=== PATIENT | female | born 1935 | race Caucasian/White ===

== ENCOUNTER 2016-03-18 19:10 | Inpatient (IN) | payer OTHER ==
[2016-03-18] MEDS ORDERED: Sodium Chloride 0.9% 1,000 ML PRIMARY IV ONE (19:23)
[2016-03-18] MEDS ORDERED: NORMAL SALINE 10 ML SYRINGE FLUSH IVP PRN (19:23)
[2016-03-18] MEDS ORDERED: ALBUTEROL SULFATE 2.5 MG/3 ML NEB ONE (19:23)
[2016-03-18 19:44] LABS: BASOPHILS # (AUTO) 0.02 10*3/UL; BASOPHILS % (AUTO) 0.2 % (0-1); EOSINOPHILS % (AUTO) 1.2 % (0-8); HEMATOCRIT 40.8 % (37.0-47.0); IMM GRAN % (AUTO) 0.2 % (0-5); IMM GRAN# (AUTO) 0.02 10*3/UL; LYMPHOCYTES # (AUTO) 0.52 10*3/uL; LYMPHOCYTES % (AUTO) 4.4 % (10-50); MEAN CORPUSCULAR HEMOGLOBIN 29.1 PG (27-31); MEAN CORPUSCULAR HGB CONC 31.9 g/dL (33-37); MEAN PLATELET VOLUME 10.6 FL (7.4-12.2); MONOCYTES # (AUTO) 0.74 10*3/UL (0.3-0.8); MONOCYTES % (AUTO) 6.3 % (5-15); NEUTROPHILS # (AUTO) 10.37 10*3/UL; NEUTROPHILS % (AUTO) 87.7 % (50-80); RDW COEFFICIENT OF VARIATION 13.6 % (11.5-14.5); RED BLOOD COUNT 4.46 10^6/uL (4.20-5.40); WHITE BLOOD COUNT 11.81 10^3/uL (4.8-10.8)
[2016-03-18 19:47] LABS: PLATELET MORPHOLOGY COMMENT NORMAL MORPHOLOGY (NORM)
[2016-03-18 19:54] LABS: BILIRUBIN,TOTAL 0.6 mg/dL (0.3-1.2); BUN/CREATININE RATIO 21.42 (6-20); CALCIUM 8.9 mg/dL (8.7-10.7); CREATININE 0.7 mg/dL (0.50-1.20); POTASSIUM 4.1 meq/L (3.8-5.2); TOTAL PROTEIN 7.4 g/dL (6.1-8.0)
--- NOTE | 2016-03-18 22:00 | DI ---
HISTORY: Dyspnea with hypoxia. COMPARISON: None available. FINDINGS: The heart is in the upper limits of normal with atheromatous changes of the dorsal aorta. There is mild COPD with accentuation of the pulmonary vasculature in both lung bases. The lung fie lds are otherwise essentially clear. IMPRESSION: 1. The heart is in the upper limits of normal with atheromatous changes of the dorsal aorta. 2. There is mild COPD with accentuation of the pulmonary vasculature in both lung bases.
--- NOTE | 2016-03-18 22:08 | DI ---
HISTORY: Dyspnea and hypoxia. COMPARISON: None available. TECHNIQUE: Multiple helically acquired CT images were obtained through the chest following a CT kylee ogram protocol. FINDINGS: Examination demonstrates mild cardiomegaly. Peripheral vascular calcifications are seen. The pulmonary arteries are normal without filling defect or truncation. There is mild subsegmental a telectasis. Peripheral vascular disease is seen. There is mild osteopenia. Patient is status post vertebroplasty at multiple levels. IMPRESSION: 1. No evidence of pulmonary embolism. Christiano Martinez M.D. and True Nguyen M.D.
--- NOTE | 2016-03-18 22:48 | PDOC ---
Dyspnea HPI - General Chief Complaint: Dyspnea Stated Complaint: Dyspnea Date Seen by Provider: 03/18/16 Time Seen by Provider: 19:15 Source: POSITIVE: Patient, Other (daughter) Exam Limitations: POSITIVE: No limitations Treatment Prior to Arrival: REPORTS: Oxygen, Other (DuoNeb) Nurse's Notes Reviewed & Considered: Yes - History of Present Illness Initial Comments: The patient is an 80year-old female.. She is brought to the emergency room by her daughter. Patient states that for the last 12-24 hours she has been very short of breath. She's also had a mild cough. This evening she began to run a fever. She was seen by her primary care provider earlier today for these symptoms and she was noted to be hypoxic. Patient does take 2 L/m of supplemental oxygen at night, and she was advised to continue with this amount of supplemental oxygen during the day. Patient has a history of COPD; she smoked at least a pack of cigarettes per day up until 9 years ago, and has not smoked since. She's had a mild nonproductive cough. History of DVT to the right leg in the past. History of hypertension and she states she had a myocardial infarction approximately one year ago. Body Location Affected: REPORTS: Chest Timing: REPORTS: Gradual, Getting Worse Duration: <24 hours Severity: Moderate Quality: REPORTS: Other (Patient denies any chest pain or any other pain anywhere) Initiating Event: DENIES: Upper Respiratory Illness, Out of Medications, Sports , Exercise, Aspiration, Choking, Allergy, Exposure - Smoke, Exposure - Mold, Exposure - Other Allergen Context: DENIES: Sleep, Rest, Emotional Upset, Activity, Exertion, Other Exacerbated By: REPORTS: Exertion (Dyspnea worsened by exertion) Associated Symptoms: REPORTS: Fever Similar Symptoms Previously: Yes Recently seen/treated/hospitalized: Yes Any Prior Injuries Related to Current Complaint?: No - Patient Home Medications Home Medications: Home Medications Calc/D3/Mag/Zn/Wire Straightener/Clarence/Karthaus [Calcium 600 Mg + Vit D Tab] 2 each PO DAILY #180 tab 01/25/13 Oxygen (O2) 1 unit NASAL DAILY #1 unit 01/25/13 Denosumab [Prolia] 60 mg SUBCUT MONTHLY #1 ml 03/19/14 Albuterol/Ipratrop Neb Soln [Duoneb Neb Soln] 1 vial NEB Q4-6HRSPRN #1 box 02/28 Aspirin 1 tab PO QD #30 tab 09/30/15 Metoprolol Tartrate 1 tab ORAL BID #180 tab 09/30/15 Omeprazole 1 cap PO QD #30 cap 12/24/15 Tiotropium [place] [Spiriva] 18 mcg IH QD #30 capsule 12/24/15 Fluticasone/Salmeterol [Advair 250-50 Diskus] 1 puff INH BID #60 puff 01/05/16 - Patient Allergies Allergies/Adverse Reactions: Allergies Allergy/AdvReac Type Severity Reaction Status Date / Time No Known Drug Allergies Allergy NOT Verified 03/18/16 19:26 APPLICABLE Past Medical History - heen HEENT History: Cataracts Cardiovascular History: Hypertension, Previous [place], CAD, DVTs Additional Cardiovasular History: ATYPICAL CHEST PAIN, [place] 03/09/15. Endarterectomy Respiratory History: COPD, Home Oxygen Use Additional Respiratory History: 1-2 lpm n/c only at night Gastrointestinal History: GERD Additional Gastrointestinal History: COLONIC POLYPS Genitourinary History: Denies History Endocrine History: Denies History Musculoskeletal History: Osteoporosis Prosthesis or Implant: No Additional Neurological History: CEREBROVASCULAR DISEASE Blood Disorders: Other (please comment) Additional Blood Disorders History: Hx of DVT in right leg Psychiatric History: Anixety Disorders Additional Psychiatric History: Anxiety with dyspnea History of Sexually Transmitted Diseases: No Female Reproductive History: Denies History Obstetrical History: Denies History Cancer History: Denies History In Past Year Been Physically Harmed or Verbally Threatened: No History of MDRO: No History of Other Communicable Diseases: No Tobacco Use: Former Smoker Alcohol Use: None Substance Use Type: None Previous Surgical History: Yes Type / Date of Surgery: KYPHOPLASTY 01/17/13 & 04/22/07-CAROTID ENDARTERCTOMY -COLONOSCOPY 08/22/10. Cataracts Anesthesia Reactions: No Malignant Hyperthermia: No Significant Family History: Cancer Past Medical History Reviewed: Reviewed - No Changes ROS - Limitations ROS Limitations: No Limitations Constitution: REPORTS: Chills, Fever, Other (Dyspnea) Cardiovascular: REPORTS: Denies Cardiac Symptoms Respiratory: REPORTS: Cough Non Productive Neurological: REPORTS: Denies Neuro Symptoms Gastrointestinal: REPORTS: Denies GI Symptoms Endocrine: REPORTS: Denies Symptoms Musculoskeletal: REPORTS: Denies MS Symptoms Genitourinary: REPORTS: Denies Symptoms Eyes: REPORTS: Denies Symptoms ENT: REPORTS: Denies Symptoms Skin: REPORTS: Denies Skin Symptoms Lympathic: REPORTS: Denies Lympathic Symptoms Immunologic: POSITIVE: Denies Symptoms Psychiatric: POSITIVE: Denies Psych Symptoms Dyspnea Physical Exam - General Appearance General Appearance: REPORTS: Alert, Cooperative, No Acute Distress, No Evidence of Trauma - HEENT HEENT: POSITIVE: Head Inspection Nml, Eyes Inspection Nml, Ears Inspection Nml, Nose Inspection Nml, Oral/Dental Inspect. Nml, Pharynx Inspect. Nml, PERRL, EOMI - Neck Neck: REPORTS: Normal Inspection, No Carotid Bruit - Respiratory Respiratory: REPORTS: No Pleuritic Chest Pain, Speaks Full Sentences, No Pain on Inspiration, Respiratory Distress (Dyspnea, especially on exertion), Rhonchi , Decreased Air Movement. DENIES: Breath Sounds Normal (Scattered rhonchi), Fatigue, Wheezes, Rales, Prolonged Expirations, Accessory Muscle Use, Retractions, Splinting, Dull on Percussion, Chest Wall Tenderness, Speaks Broken Sentences, Stridor, Respiratory Failure - Cardiovascular Cardiovascular: REPORTS: Regular Rate and Rhythm, Heart Sounds Normal, Equal Pulses, Strong Pulses, No Murmur, No Gallop, No Friction Rub, No JVD Peripheral Pulses: Radial (R): 2+, Radial (L): 2+ - Abdomen Abdomen: Soft: (All Quadrants), Normal Bowel Sounds: (All Quadrants), Denies Tenderness: (All Quadrants), No Splenomegaly: (All Quadrants), No Hepatomegaly: (All Quadrants), No Guarding: (All Quadrants), No Rebound: (All Quadrants), No Palpable Pulse: (All Quadrants), No Palpabale Mass: (All Quadrants), No Distention: (All Quadrants), No Rigidity: (All Quadrants) - Skin Skin: REPORTS: Intact, Normal For Race, Warm, Dry, No Rash - Extremities Extremity: Non-Tender: (All Extremities), Normal ROM: (All Extremities), Normal Inspection: (All Extremities) - Neurological / Psychological Neurological: POSITIVE: Oriented X3, desk sergeant Normal As Tested, Motor Normal, Sensation Normal, 5, 6 Dyspnea Progress - Results Reviewed by me Xrays/CTs/US Reviewed by me: Yes Discussed with Radiologist: Yes Radiology Findings: Chest x-ray shows no definite infiltrates. CTA chest shows no pulmonary emboli or definite infiltrates. Lab Results Reviewed: Yes (d-dimer elevated.) Lab Results:: Laboratory Results 03/18/16 03/18/16 Range/Units 19:35 19:43 WBC 11.81 H (4.8-10.8) 10^3/uL RBC 4.46 (4.20-5.40) 10^6/uL Hgb 13.0 (12.0-16.0) g/dL Hct 40.8 (37.0-47.0) % MCV 91.5 (81-99) FL MCH 29.1 (27-31) PG MCHC 31.9 L (33-37) g/dL RDW Std Deviation 44.9 (39-50) fL RDW Coeff of Kimmy 13.6 (11.5-14.5) % Plt Count 261 (140-350) 10*3/uL MPV 10.6 (7.4-12.2) FL Immature Gran % (Auto) 0.2 (0-5) % Neut % (Auto) 87.7 H (50-80) % Lymph % (Auto) 4.4 L (10-50) % [place] % (Auto) 6.3 (5-15) % Eos % (Auto) 1.2 (0-8) % Baso % (Auto) 0.2 (0-1) % Immature Gran # (Auto) 0.02 10*3/UL Neut # (Auto) 10.37 10*3/UL Lymph # (Auto) 0.52 10*3/uL [place] # (Auto) 0.74 (0.3-0.8) 10*3/UL Eos # (Auto) 0.14 10*3/UL Baso # (Auto) 0.02 10*3/UL WBC Morphology Comment Normal morphology (NORM) Plt Morphology Comment Normal morphology (NORM) RBC Morph Comment Normal morphology (NORM) D-Dimer 12.01 H (0.00-0.59) mg/L VBG pH 7.39 (7.32-7.42) VBG pCO2 43 L (45-55) mmHg VBG HCO3 26 (22-26) mmol/L VBG Base Excess 1 (-2-2) MMOL/L Sodium 141 (135-145) meq/L Potassium 4.1 (3.8-5.2) meq/L Chloride 103 (98-112) meq/L Carbon Dioxide 27 (23-33) meq/L Anion Gap 11 (5-20) BUN 15 (7-22) mg/dL Creatinine 0.7 (0.50-1.20) mg/dL Estimated GFR (>60 ml/min/1.73m(2)) BUN/Creatinine Ratio 21.42 H (6-20) Glucose 134 H (78-110) mg/dL Calculated Osmolality 294.0 H (267-292) mOsm/kg Calcium 8.9 (8.7-10.7) mg/dL Total Bilirubin 0.6 (0.3-1.2) mg/dL AST 22 (8-39) IU/L ALT 24 (9-52) IU/L Alkaline Phosphatase 65 (38-126) IU/L Total Protein 7.4 (6.1-8.0) g/dL Albumin 4.2 (3.5-4.8) g/dL Globulin 3.2 (2.50-4.10) g/dL Albumin/Globulin Ratio 1.30 (1.3-2.0) mg/g - Patient's Progress Pain Medication Addressed: POSITIVE: Not Applicable School/Work Release Addressed: POSITIVE: Not Applicable Re-Examine Time: 22:35 Re-Examine Comment: Patient feels some better after DuoNeb treatment. Oxygen saturation is 80 off of oxygen, but come up to 92-94 on 4 L. Repeat temperature is 99, down from the 101 on arrival Status: POSITIVE: Improved, Re-Examined Air Movement: POSITIVE: Fair - Consult Consult (If Yes, Name of Consulting MD & Time Called): Yes (Dr. Dean, hospitalist, [id number]) Consulting MD will see pt:: POSITIVE: [facility] [place] Admit Counseled: POSITIVE: Patient, Family, RE: Lab Results, RE: Radiology Results, RE : DX, RE: Need for F/U Patient Care Time - Estimated PCT Patient Care Time (In Minutes): 40 Vital Signs - Recent Vital Signs Vital Signs: Vital Signs (Last 8 hours) Temp Pulse Resp BP Pulse Ox 03/18/16 22:38 99.5 F 03/18/16 19:10 101 F H 83 22 157/90 94 - VS Reviewed Vital Signs Reviewed: Yes Discharge Clinical Impression: Chronic obstructive lung disease, Hypoxia, Fever Discharge Disposition: Admit to Inpatient Condition: Fair Date Decision to Admit to Inpatient: 03/18/16 Time Decision to Admit to Inpatient: 22:35
[2016-03-18] MEDS ORDERED: methylPREDNISolone 125 MG/2 ML VIAL IVP SCH (23:00)
[2016-03-18] MEDS ORDERED: ASPIRIN 325 MG TABLET PO SCH (23:12)
[2016-03-18] MEDS ORDERED: ALBUTEROL SULFATE 2.5 MG/3 ML NEB PRN (23:12)
--- NOTE | 2016-03-19 00:04 | PDOC ---
History and Physical - History of Present Illness Date and Time of Service: 03/18/2016, 1159 Chief Complaint: Shortness of breath and urinary urgency History of Present Illness: This very pleasant 80-year-old female who has underlying COPD without history of prior exacerbations, recent UTI in August, osteoporosis, amongst other medical issues, who presents today after sort of history. She complains of shortness of breath primarily and states that that started this morning while she was in the clinic for her annual examination. I do note by review of that medical record that the patient actually had a broken oxygen concentrator. She's been on oxygen, 2 L at nighttime, for many years. This was all related to her COPD. She states that in the office, she was hypoxic, but she did not feel any cough at that time. She had a fever that developed tonight, along with chills, and noted that she had some urinary urgency as well. She did come to the emergency room after the development of the fever and chills, and on albuterol treatment helped her shortness of breath feel better. She reports no cough. She's never had an exacerbation before. The patient, in the clinic, had a nocturnal pulse ox study ordered so that they could repair or replace the broken concentrator she has at home. Notably, the patient states that prior to her clinic appointment today she had a fall in which her hair was wet and it was in front of her eyes and she missed the corner of an object in her house and hit it and collapse to her knees. She denies any pain in her knees at this time. Past Medical History Medical History: 1. COPD. 2. Hypertension. 3. Osteoporosis. 4. Coronary artery disease. 5. Carotid artery disease status post carotid endarterectomy in the past. 6. History of smoking, but quit 9 years ago. 7. Vitamin D deficiency, replaced. 8. Hypercholesterolemia with refusal to go on statin therapy. 9. Raynaud's phenomenon Surgical History: 1. Left carotid endarterectomy. 2. Kyphoplasty I believe 2 for the patient's history. 3. Remote colonoscopy Pertinent Family History: Significant for stroke, cancer, and lymphoma. Past Social History: Used to smoke but quit 9 years ago. for the last 3 years. Has 4 children described as healthy. Was a homemaker. Does not drink alcohol. Currently lives alone. Tobacco Use: Former Smoker Substance Use Type: None Alcohol Use: None Medication / Allergies Home Medications: Home Medications Medication Instructions Recorded Confirmed Type Calc/D3/Mag/Zn/Medical Reception Specialist/Clarence/Kendall 2 each PO DAILY #180 tab 01/25/13 03/18/16 Clinic [Calcium 600 Mg + Vit D Tab] Oxygen (O2) 1 unit NASAL DAILY #1 unit 01/25/13 03/18/16 Clinic Denosumab [Prolia] 60 mg SUBCUT MONTHLY #1 ml 03/19/14 03/18/16 Clinic Albuterol/Ipratrop Neb Soln 1 vial NEB Q4-6HRSPRN #1 box 02/28/15 03/18/16 Clinic [Duoneb Neb Soln] Aspirin 1 tab PO QD #30 tab 09/30/15 03/18/16 [facility] Metoprolol Tartrate 1 tab ORAL BID #180 tab 09/30/15 03/18/16 Clinic Omeprazole 1 cap PO QD #30 cap 12/24/15 03/18/16 Clinic Tiotropium [place] [Spiriva] 18 mcg IH QD #30 capsule 12/24/15 03/18/16 Clinic Fluticasone/Salmeterol [Advair 1 puff INH BID #60 puff 01/05/16 03/18/16 Clinic 250-50 Diskus] Allergies/Adverse Reactions: Allergies Allergy/AdvReac Type Severity Reaction Status Date / Time No Known Drug Allergies Allergy NOT Verified 03/18/16 19:26 APPLICABLE Review of Systems - Review of Systems All Systems: Reviewed & No Additional Complaints Except as Stated (I did a 12 point review systems and it was negative except as per history of present illness and that noted below.) - Constitutional Constitutional: REPORTS: Fever/Chills - Respiratory Respiratory: REPORTS: See HPI - Genitourinary Genitourinary: REPORTS: Urgency (States that she has some increased urgency and frequency.), Other (Urinary tract infection last August) - Neurological Neurologic: REPORTS: Headache (Had a five-minute headache today that resolved spontaneously.) Exam - Vitals Vital Signs: Vital Signs Temperature 99.5 F Temperature Source Temporal Artery Scan Pulse Rate 85 Respiratory Rate 18 Blood Pressure 157/90 Pulse Ox 96 Currently on 2 L per nasal cannula. - General General Appearance: POSITIVE: No Acute Distress, Cooperative - Head Head Exam: POSITIVE: Normal Inspection, Normocephalic, Atraumatic - Eye Eye Exam: POSITIVE: No Scleral Icterus - ENT ENT Exam: POSITIVE: Mucous Membranes Moist - Neck Neck Exam: POSITIVE: Normal Inspection, No Tenderness, No Thyromegaly - Respiratory Respiratory Exam: POSITIVE: Clear to Auscultation - Bilaterally, Breathing Non Labored, Normal to Percussion and Palpation - Cardiovascular Cardiovascular Exam: POSITIVE: RRR, No Murmur, No Clicks, No Gallops, No Rubs, No JVD - GI/Abdominal GI/Abdominal Exam: POSITIVE: Normal Bowel Sounds, Non Tender, Non Distended, Soft - Rectal Rectal Exam: POSITIVE: Deferred - External Exam: POSITIVE: Deferred Exam: POSITIVE: Deferred - Extremities Extremities Exam: POSITIVE: No Edema Present, No Cyanosis Present, Clubbing Present (Mild clubbing of the digits.) - Back Back Exam: POSITIVE: No CVA Tenderness - Neurological Neurological Exam: POSITIVE: Alert, Oriented x 3, No Facial Droop, Speech Intact / Clear, Moves All Extremities Equally - Psychiatric Psychiatric Exam: POSITIVE: Normal Affect, Normal Mood - Integumentary Integumentary Exam: POSITIVE: Normal Color, Warm Additional Integumentary Exam Details: Some bruises on her knees and her left elbow. Results - Labs CBC and BMP: 03/18/16 19:35 03/18/16 19:35 Labs - Last 24 Hours: Laboratory Results 03/18/16 03/18/16 Range/Units 19:35 19:43 WBC 11.81 H (4.8-10.8) 10^3/uL RBC 4.46 (4.20-5.40) 10^6/uL Hgb 13.0 (12.0-16.0) g/dL Hct 40.8 (37.0-47.0) % MCV 91.5 (81-99) FL MCH 29.1 (27-31) PG MCHC 31.9 L (33-37) g/dL RDW Std Deviation 44.9 (39-50) fL RDW Coeff of Kimmy 13.6 (11.5-14.5) % Plt Count 261 (140-350) 10*3/uL MPV 10.6 (7.4-12.2) FL Immature Gran % (Auto) 0.2 (0-5) % Neut % (Auto) 87.7 H (50-80) % Lymph % (Auto) 4.4 L (10-50) % [place] % (Auto) 6.3 (5-15) % Eos % (Auto) 1.2 (0-8) % Baso % (Auto) 0.2 (0-1) % Immature Gran # (Auto) 0.02 10*3/UL Neut # (Auto) 10.37 10*3/UL Lymph # (Auto) 0.52 10*3/uL [place] # (Auto) 0.74 (0.3-0.8) 10*3/UL Eos # (Auto) 0.14 10*3/UL Baso # (Auto) 0.02 10*3/UL WBC Morphology Comment Normal morphology (NORM) Plt Morphology Comment Normal morphology (NORM) RBC Morph Comment Normal morphology (NORM) D-Dimer 12.01 H (0.00-0.59) mg/L VBG pH 7.39 (7.32-7.42) VBG pCO2 43 L (45-55) mmHg VBG HCO3 26 (22-26) mmol/L VBG Base Excess 1 (-2-2) MMOL/L Sodium 141 (135-145) meq/L Potassium 4.1 (3.8-5.2) meq/L Chloride 103 (98-112) meq/L Carbon Dioxide 27 (23-33) meq/L Anion Gap 11 (5-20) BUN 15 (7-22) mg/dL Creatinine 0.7 (0.50-1.20) mg/dL Estimated GFR (>60 ml/min/1.73m(2)) BUN/Creatinine Ratio 21.42 H (6-20) Glucose 134 H (78-110) mg/dL Calculated Osmolality 294.0 H (267-292) mOsm/kg Calcium 8.9 (8.7-10.7) mg/dL Total Bilirubin 0.6 (0.3-1.2) mg/dL AST 22 (8-39) IU/L ALT 24 (9-52) IU/L Alkaline Phosphatase 65 (38-126) IU/L Total Protein 7.4 (6.1-8.0) g/dL Albumin 4.2 (3.5-4.8) g/dL Globulin 3.2 (2.50-4.10) g/dL Albumin/Globulin Ratio 1.30 (1.3-2.0) mg/g - EKG Data -: EKG Interpreted by Me Rate: Normal - EKG Data EKG Interpretation: Normal EKG - Imaging Status: Image Reviewed by Me (Chest x-ray on my view is negative. CTA of the chest was negative for pulmonary and wasn't. On my view there is no evidence that there is pneumonia.) Assessment and Plan - Patient Problems (1) COPD exacerbation Current Visit: Yes Status: Acute (2) Fever and chills Current Visit: Yes Status: Acute (3) Coronary artery disease Current Visit: Yes Status: Acute Qualifiers: Coronary Disease-Associated Artery/Lesion type: [place] artery Associated angina: without angina (4) Carotid artery disease Current Visit: Yes Status: Acute Qualifiers: Laterality: left Qualified Description: Left-sided carotid artery disease Qualifier Code(s): (I77.9) Disorder of arteries and arterioles, unspecified (5) Osteoporosis Current Visit: Yes Status: Acute (6) Hypertension Current Visit: Yes Status: Acute Qualifiers: Hypertension type: essential hypertension Qualified Description: Essential hypertension Qualifier Code(s): (I10) Essential (primary) hypertension (7) Urinary urgency Current Visit: Yes Status: Acute - Assessment / Plan Additional Assessment/Plan Details: Admit the patient. Given her history, this could be a COPD exacerbation but it could also be a urinary tract infection given her dysuria, fever, and chills. The patient has no cough and no phlegm production that I'm aware of based on her history, but she does have increased shortness of breath. However this could be attributed to the fact that her concentrator at home has been broken. In all honesty, her history had to be directed with very close ended questions, and I think the patient was a little confused on details. She had told the emergency room that she had oxygen ordered today however based on my review of her record she actually had a nocturnal pulse ox study ordered so that they could turn that information into replace her broken concentrator. In the meantime, get UA with catheter. Antibiotics and steroids. Breathing therapies as necessary for shortness breath. Check labs tomorrow. Had a lengthy discussion with patient regarding CODE STATUS, discussed also with her daughter and her son present at bedside. The patient is DO NOT RESUSCITATE. She is not keen on the idea of any chest compressions. Get x-rays of the knees. I discussed the above plan with the patient and her children and they agreed.
[2016-03-19] MEDS ORDERED: ACETAMINOPHEN 325 MG TABLET PO PRN (00:24)
[2016-03-19] MEDS: methylPREDNISolone 125 MG/2 ML VIAL IVP SCH ×5 (00:34→23:47)
[2016-03-19] MEDS: NORMAL SALINE 10 ML SYRINGE FLUSH IVP PRN ×2 (00:36→23:48)
[2016-03-19] MEDS: Metoprolol TARTRATE Tab 25 MG TAB PO SCH ×3 (00:36→20:39)
[2016-03-19] MEDS: cefTRIAXone Inj 1 GM in Sodium Chloride 0.9% 100 ML IV SCH ×2 (00:37→23:47)
[2016-03-19] MEDS: Sodium Chloride 0.9% 1,000 ML IV SCH ×2 (00:48→16:00)
[2016-03-19 01:29] LABS: BILIRUBIN,URINE NEGATIVE (NEG); CLARITY,URINE CLEAR (CLEAR); GLUCOSE, URINE (UA) NEGATIVE (NEG); LEUKOCYTE ESTERASE ,URINE NEGATIVE (NEG); NITRATE,URINE NEGATIVE (NEG); OCCULT BLOOD,URINE NEGATIVE (NEG); PH,URINE 7.5 (5.0-8.5); PROTEIN,URINE 100 mg/dl (NEG); UROBILINOGEN,URINE 0.2 EU/dL (0.2)
[2016-03-19 01:38] LABS: URINE SAMPLE TYPE CATH SPECIMEN
[2016-03-19 01:39] LABS: RBC,URINE 0-3 /hpf; WBC,URINE 0-1
[2016-03-19 05:09] LABS: BASOPHILS # (AUTO) 0.02 10*3/UL; BASOPHILS % (AUTO) 0.2 % (0-1); EOSINOPHILS % (AUTO) 0.9 % (0-8); HEMATOCRIT 36.5 % (37.0-47.0); HEMOGLOBIN 11.4 g/dL (12.0-16.0); IMM GRAN % (AUTO) 0.1 % (0-5); IMM GRAN# (AUTO) 0.01 10*3/UL; LYMPHOCYTES # (AUTO) 0.58 10*3/uL; LYMPHOCYTES % (AUTO) 5.9 % (10-50); MEAN CORPUSCULAR HGB CONC 31.2 g/dL (33-37); MEAN PLATELET VOLUME 10.8 FL (7.4-12.2); MONOCYTES # (AUTO) 0.09 10*3/UL (0.3-0.8); MONOCYTES % (AUTO) 0.9 % (5-15); RDW COEFFICIENT OF VARIATION 13.7 % (11.5-14.5); RED BLOOD COUNT 3.93 10^6/uL (4.20-5.40); WHITE BLOOD COUNT 9.79 10^3/uL (4.8-10.8)
[2016-03-19 05:10] LABS: PLATELET MORPHOLOGY COMMENT NORMAL MORPHOLOGY (NORM)
[2016-03-19 05:11] LABS: BUN/CREATININE RATIO 21.42 (6-20); CALCIUM 8.2 mg/dL (8.7-10.7); CREATININE 0.7 mg/dL (0.50-1.20); POTASSIUM 4.4 meq/L (3.8-5.2)
[2016-03-19] MEDS: IPRATROPIUM/ALBUTEROL SULFATE 3 ML NEB NEB SCH ×4 (06:40→18:47)
[2016-03-19] MEDS: FLUTICASONE/SALMETEROL 250/50 UD INHALER INH SCH ×2 (06:43→18:46)
[2016-03-19] MEDS: OMEPRAZOLE 20 MG CAPSULE PO SCH (06:57)
[2016-03-19] MEDS: ENOXAPARIN SODIUM 40 MG/0.4 ML SYRINGE SUBCUT SCH (08:56)
[2016-03-19] MEDS: ASPIRIN 325 MG TABLET PO SCH (08:56)
[2016-03-19] MEDS ORDERED: FLUTICASONE/SALMETEROL 250/50 UD INHALER INH SCH ×2 (09:00→19:00)
[2016-03-19] MEDS ORDERED: Water, Sterile for Inj 10 ML ONE (12:19)
--- NOTE | 2016-03-19 13:49 | PDOC(PROG) ---
Interval History: Doing well no complaints able to breathe a little better Objective : Data - Labs CBC and BMP: 03/19/16 04:49 03/19/16 04:49 Labs - Last 24 Hours: Laboratory Results 03/19/16 03/19/16 03/19/16 Range/Units 01:21 04:49 04:50 WBC 9.79 (4.8-10.8) 10^3/uL RBC 3.93 L (4.20-5.40) 10^6/uL Hgb 11.4 L (12.0-16.0) g/dL Hct 36.5 L (37.0-47.0) % MCV 92.9 (81-99) FL MCH 29.0 (27-31) PG MCHC 31.2 L (33-37) g/dL RDW Std Deviation 45.9 (39-50) fL RDW Coeff of Kimmy 13.7 (11.5-14.5) % Plt Count 236 (140-350) 10*3/uL MPV 10.8 (7.4-12.2) FL Immature Gran % (Auto) 0.1 (0-5) % Neut % (Auto) 92.0 H (50-80) % Lymph % (Auto) 5.9 L (10-50) % [place] % (Auto) 0.9 L (5-15) % Eos % (Auto) 0.9 (0-8) % Baso % (Auto) 0.2 (0-1) % Immature Gran # (Auto) 0.01 10*3/UL Neut # (Auto) 9.00 10*3/UL Lymph # (Auto) 0.58 10*3/uL [place] # (Auto) 0.09 L (0.3-0.8) 10*3/UL Eos # (Auto) 0.09 10*3/UL Baso # (Auto) 0.02 10*3/UL WBC Morphology Comment Normal morphology (NORM) Plt Morphology Comment Normal morphology (NORM) RBC Morph Comment Normal morphology (NORM) VBG pH 7.35 (7.32-7.42) VBG pCO2 46 (45-55) mmHg VBG HCO3 26 (22-26) mmol/L VBG Base Excess 0 (-2-2) MMOL/L Sodium 142 (135-145) meq/L Potassium 4.4 (3.8-5.2) meq/L Chloride 107 (98-112) meq/L Carbon Dioxide 26 (23-33) meq/L Anion Gap 9 (5-20) BUN 15 (7-22) mg/dL Creatinine 0.7 (0.50-1.20) mg/dL Estimated GFR (>60 ml/min/1.73m(2)) BUN/Creatinine Ratio 21.42 H (6-20) Glucose 163 H (78-110) mg/dL Calculated Osmolality 298.0 H (267-292) mOsm/kg Calcium 8.2 L (8.7-10.7) mg/dL Ur Collection Type Cath specimen Urine Color Yellow Urine Clarity Clear (CLEAR) Urine pH 7.5 (5.0-8.5) Ur Specific [place] 1.020 (1.005-1.030) Urine Protein 100 (NEG) mg/dl Urine Glucose (UA) Negative (NEG) mg/dL Urine Ketones Trace (NEG) Urine Occult Blood Negative (NEG) Urine Nitrate Negative (NEG) Urine Bilirubin Negative (NEG) Urine Urobilinogen 0.2 (0.2) EU/dL Ur Leukocyte Esterase Negative (NEG) Urine RBC 0-3 (NONE) /hpf Urine WBC 0-1 (NONE) Ur Squamous Epith Cells None (NONE) Ur Renal Epithelial Cell None (NONE) Urine Crystals None Urine Bacteria None (NONE) Urine Casts None (NONE) Urine Mucus Rare (NONE) Urine Trichomonas None (NONE) Urine Yeast None (NONE) Ur Culture Indicated? Culture not set Objective : Exam - General General Appearance: No Acute Distress, Cooperative - Respiratory Respiratory Exam: Clear to Auscultation - Bilaterally, Decreased Breath Sounds Additional Respiratory Exam Details: No wheezes - Cardiovascular Cardiovascular Exam: RRR, No Murmur, No Clicks - GI/Abdominal GI/Abdominal Exam: Normal Bowel Sounds, Non Distended, Soft - Extremities Extremities Exam: Normal Inspection, No Clubbing Present, No Edema Present Assessment and Plan - Patient Problems (1) COPD exacerbation Current Visit: Yes Status: Acute (2) Hypertension Current Visit: Yes Status: Acute Qualifiers: Hypertension type: essential hypertension Qualified Description: Essential hypertension Qualifier Code(s): (I10) Essential (primary) hypertension - Assessment / Plan Additional Assessment/Plan Details: #1 COPD exacerbation continue antibiotics I have added Zithromax continue steroids and neb treatments and inhalers reviewed CT scan no PE no pneumonia I believe patient has never been diagnosed will benefit from pulmonary function test as an outpatient
[2016-03-20] MEDS ORDERED: CloNIDine Tab 0.1 MG TABLET PO ONE (03:15)
[2016-03-20] MEDS: Sodium Chloride 0.9% 1,000 ML IV SCH (04:33)
[2016-03-20] MEDS: methylPREDNISolone 125 MG/2 ML VIAL IVP SCH ×4 (05:58→23:47)
[2016-03-20] MEDS: IPRATROPIUM/ALBUTEROL SULFATE 3 ML NEB NEB SCH ×4 (06:34→19:05)
[2016-03-20] MEDS: FLUTICASONE/SALMETEROL 250/50 UD INHALER INH SCH ×2 (06:36→19:05)
[2016-03-20] MEDS: OMEPRAZOLE 20 MG CAPSULE PO SCH (07:11)
[2016-03-20] MEDS: ASPIRIN 325 MG TABLET PO SCH (08:38)
[2016-03-20] MEDS: ENOXAPARIN SODIUM 40 MG/0.4 ML SYRINGE SUBCUT SCH (08:38)
[2016-03-20] MEDS: Metoprolol TARTRATE Tab 25 MG TAB PO SCH ×2 (08:38→20:43)
--- NOTE | 2016-03-20 11:26 | PDOC(PROG) ---
Interval History: Doing much better today better air movement no complaints Objective : Data - Labs CBC and BMP: 03/19/16 04:49 03/19/16 04:49 Objective : Exam - General General Appearance: Cooperative - Head Head Exam: Normal Inspection - Respiratory Respiratory Exam: Clear to Auscultation - Bilaterally, Breathing Non Labored, Decreased Breath Sounds - Cardiovascular Cardiovascular Exam: RRR, No Murmur - GI/Abdominal GI/Abdominal Exam: Non Distended, Soft - Extremities Extremities Exam: No Clubbing Present, No Edema Present - Neurological Neurological Exam: Alert - Psychiatric Psychiatric Exam: Normal Affect Assessment and Plan - Patient Problems (1) COPD exacerbation Current Visit: Yes Status: Acute (2) Hypertension Current Visit: Yes Status: Acute Qualifiers: Hypertension type: essential hypertension Qualified Description: Essential hypertension Qualifier Code(s): (I10) Essential (primary) hypertension - Assessment / Plan Additional Assessment/Plan Details: COPD exacerbation continue IV antibiotics and steroids patient is improving most likely will need to stay another day we will walk her today and check her sats she might need 24-hour oxygen Hypertension seems to be controlled
[2016-03-20] MEDS: cefTRIAXone Inj 1 GM in Sodium Chloride 0.9% 100 ML IV SCH (23:05)
[2016-03-20] MEDS: NORMAL SALINE 10 ML SYRINGE FLUSH IVP PRN (23:06)
[2016-03-21] MEDS ORDERED: CloNIDine Tab 0.1 MG TABLET PO ONE ×2 (03:29→03:47)
[2016-03-21] MEDS ORDERED: LISINOPRIL 20 MG TABLET PO ONE ×2 (03:30→03:48)
[2016-03-21 05:31] LABS: BASOPHILS # (AUTO) 0.01 10*3/UL; BASOPHILS % (AUTO) 0.1 % (0-1); EOSINOPHILS % (AUTO) 0 % (0-8); HEMATOCRIT 34.2 % (37.0-47.0); HEMOGLOBIN 10.5 g/dL (12.0-16.0); IMM GRAN % (AUTO) 0.2 % (0-5); IMM GRAN# (AUTO) 0.03 10*3/UL; LYMPHOCYTES # (AUTO) 0.39 10*3/uL; LYMPHOCYTES % (AUTO) 2.8 % (10-50); MEAN CORPUSCULAR HEMOGLOBIN 29.2 PG (27-31); MEAN CORPUSCULAR HGB CONC 30.7 g/dL (33-37); MEAN PLATELET VOLUME 11.2 FL (7.4-12.2); MONOCYTES % (AUTO) 2.2 % (5-15); NEUTROPHILS # (AUTO) 13.04 10*3/UL; NEUTROPHILS % (AUTO) 94.7 % (50-80); RDW COEFFICIENT OF VARIATION 14.5 % (11.5-14.5); WHITE BLOOD COUNT 13.77 10^3/uL (4.8-10.8)
[2016-03-21 05:37] LABS: BILIRUBIN,TOTAL 0.2 mg/dL (0.3-1.2); BUN/CREATININE RATIO 27.14 (6-20); CALCIUM 8.4 mg/dL (8.7-10.7); CREATININE 0.7 mg/dL (0.50-1.20); POTASSIUM 4.3 meq/L (3.8-5.2); TOTAL PROTEIN 6.1 g/dL (6.1-8.0)
[2016-03-21 05:43] LABS: PLATELET MORPHOLOGY COMMENT NORMAL MORPHOLOGY (NORM)
[2016-03-21] MEDS ORDERED: methylPREDNISolone 40 MG/1 ML VIAL IVP SCH ×2 (06:30→12:00)
[2016-03-21] MEDS: IPRATROPIUM/ALBUTEROL SULFATE 3 ML NEB NEB SCH ×4 (07:05→19:38)
[2016-03-21] MEDS: FLUTICASONE/SALMETEROL 250/50 UD INHALER INH SCH ×2 (07:13→19:41)
[2016-03-21] MEDS: OMEPRAZOLE 20 MG CAPSULE PO SCH (07:32)
[2016-03-21] MEDS ORDERED: methylPREDNISolone 40 MG/1 ML VIAL ONE (07:36)
[2016-03-21] MEDS: methylPREDNISolone 125 MG/2 ML VIAL IVP SCH (07:43)
[2016-03-21] MEDS: ASPIRIN 325 MG TABLET PO SCH (09:01)
[2016-03-21] MEDS: Metoprolol TARTRATE Tab 25 MG TAB PO SCH ×2 (09:01→20:57)
[2016-03-21] MEDS: ENOXAPARIN SODIUM 40 MG/0.4 ML SYRINGE SUBCUT SCH (09:02)
--- NOTE | 2016-03-21 12:16 | PDOC(PROG) ---
Interval History: Patient is doing much better from a breathing standpoint she does have some high blood pressure which is spikes during the night had to give her some clonidine and lisinopril this morning we have started Norvasc 10 mg hopefully this will have her blood pressure under better control Objective : Data - Labs CBC and BMP: 03/21/16 04:50 03/21/16 04:50 Labs - Last 24 Hours: Laboratory Results 03/20/16 03/21/16 Range/Units 11:59 04:50 WBC 13.77 H (4.8-10.8) 10^3/uL RBC 3.60 L (4.20-5.40) 10^6/uL Hgb 10.5 L (12.0-16.0) g/dL Hct 34.2 L (37.0-47.0) % MCV 95.0 (81-99) FL MCH 29.2 (27-31) PG MCHC 30.7 L (33-37) g/dL RDW Std Deviation 47.9 (39-50) fL RDW Coeff of Kimmy 14.5 (11.5-14.5) % Plt Count 230 (140-350) 10*3/uL MPV 11.2 (7.4-12.2) FL Immature Gran % (Auto) 0.2 (0-5) % Neut % (Auto) 94.7 H (50-80) % Lymph % (Auto) 2.8 L (10-50) % [place] % (Auto) 2.2 L (5-15) % Eos % (Auto) 0 (0-8) % Baso % (Auto) 0.1 (0-1) % Immature Gran # (Auto) 0.03 10*3/UL Neut # (Auto) 13.04 10*3/UL Lymph # (Auto) 0.39 10*3/uL [place] # (Auto) 0.30 (0.3-0.8) 10*3/UL Eos # (Auto) 0 10*3/UL Baso # (Auto) 0.01 10*3/UL WBC Morphology Comment Normal morphology (NORM) Plt Morphology Comment Normal morphology (NORM) RBC Morph Comment Normal morphology (NORM) Sodium 143 (135-145) meq/L Potassium 4.3 (3.8-5.2) meq/L Chloride 106 (98-112) meq/L Carbon Dioxide 28 (23-33) meq/L Anion Gap 9 (5-20) BUN 19 (7-22) mg/dL Creatinine 0.7 (0.50-1.20) mg/dL Estimated GFR (>60 ml/min/1.73m(2)) BUN/Creatinine Ratio 27.14 H (6-20) Glucose 151 H (78-110) mg/dL Calculated Osmolality 300.0 H (267-292) mOsm/kg Calcium 8.4 L (8.7-10.7) mg/dL Magnesium 2.2 (1.6-2.4) mg/dL Total Bilirubin 0.2 L D (0.3-1.2) mg/dL AST 30 (8-39) IU/L ALT 33 (9-52) IU/L Alkaline Phosphatase 46 (38-126) IU/L Total Protein 6.1 (6.1-8.0) g/dL Albumin 3.4 L (3.5-4.8) g/dL Globulin 2.7 (2.50-4.10) g/dL Albumin/Globulin Ratio 1.20 L (1.3-2.0) mg/g Objective : Exam - General General Appearance: Cooperative - Head Head Exam: Normal Inspection - Eye Eye Exam: Normal Appearance - Respiratory Respiratory Exam: Clear to Auscultation - Bilaterally, Breathing Non Labored - Cardiovascular Cardiovascular Exam: No Murmur, No Clicks - GI/Abdominal GI/Abdominal Exam: Normal Bowel Sounds, Soft - Extremities Extremities Exam: No Clubbing Present - Neurological Neurological Exam: Alert, Oriented x 3, CN II-XII Intact Assessment and Plan - Patient Problems (1) COPD exacerbation Current Visit: Yes Status: Acute (2) Hypertension Current Visit: Yes Status: Acute Qualifiers: Hypertension type: essential hypertension Qualified Description: Essential hypertension Qualifier Code(s): (I10) Essential (primary) hypertension - Assessment / Plan Additional Assessment/Plan Details: #1 COPD exacerbationthis is improving normal VBG will stop the IV and start oral we will give Zithromax 500 by mouth for 3 more days and prednisone 30 mg by mouth for 5 more days #2 Uncontrolled hypertension we will add Norvasc 10 mg to the regimen #3 GERD continue PPI Medication / Allergies Home Medications: Home Medications Medication Instructions Recorded Confirmed Type Calc/D3/Mag/Zn/Emissions Inspector/Clarence/[place] 2 each PO DAILY #180 tab 01/25/13 03/18/16 Clinic [Calcium 600 Mg + Vit D Tab] Oxygen (O2) 1 unit NASAL DAILY #1 unit 01/25/13 03/18/16 Clinic Denosumab [Prolia] 60 mg SUBCUT MONTHLY #1 ml 03/19/14 03/18/16 Clinic Albuterol/Ipratrop Neb Soln 1 vial NEB Q4-6HRSPRN #1 box 02/28/15 03/18/16 Clinic [Duoneb Neb Soln] Aspirin 1 tab PO QD #30 tab 09/30/15 03/18/16 Clinic Metoprolol Tartrate 1 tab ORAL BID #180 tab 09/30/15 03/18/16 Clinic Omeprazole 1 cap PO QD #30 cap 12/24/15 03/18/16 Clinic Tiotropium [place] [Spiriva] 18 mcg IH QD #30 capsule 12/24/15 03/18/16 Clinic Fluticasone/Salmeterol [Advair 1 puff INH BID #60 puff 01/05/16 03/18/16 Clinic 250-50 Diskus] Allergies/Adverse Reactions: Allergies Allergy/AdvReac Type Severity Reaction Status Date / Time No Known Drug Allergies Allergy NOT Verified 03/19/16 19:48 APPLICABLE
[2016-03-21] MEDS ORDERED: FUROSEMIDE 10 MG/1 ML - 4 ML IVP ONE (12:37)
[2016-03-21] MEDS ORDERED: FUROSEMIDE 40 MG TABLET PO ONE (13:51)
[2016-03-22 06:24] LABS: BASOPHILS # (AUTO) 0 10*3/UL; BASOPHILS % (AUTO) 0 % (0-1); EOSINOPHILS % (AUTO) 0.2 % (0-8); HEMATOCRIT 34.9 % (37.0-47.0); HEMOGLOBIN 10.6 g/dL (12.0-16.0); IMM GRAN % (AUTO) 0.3 % (0-5); IMM GRAN# (AUTO) 0.03 10*3/UL; LYMPHOCYTES # (AUTO) 0.65 10*3/uL; LYMPHOCYTES % (AUTO) 6.4 % (10-50); MEAN CORPUSCULAR HEMOGLOBIN 28.8 PG (27-31); MEAN CORPUSCULAR HGB CONC 30.4 g/dL (33-37); MEAN PLATELET VOLUME 11.1 FL (7.4-12.2); MONOCYTES # (AUTO) 0.82 10*3/UL (0.3-0.8); NEUTROPHILS % (AUTO) 85.1 % (50-80); RDW COEFFICIENT OF VARIATION 14.6 % (11.5-14.5); RED BLOOD COUNT 3.68 10^6/uL (4.20-5.40); WHITE BLOOD COUNT 10.22 10^3/uL (4.8-10.8)
[2016-03-22 06:32] LABS: PLATELET MORPHOLOGY COMMENT NORMAL MORPHOLOGY (NORM)
[2016-03-22 06:33] LABS: BILIRUBIN,TOTAL 0.3 mg/dL (0.3-1.2); CALCIUM 8.3 mg/dL (8.7-10.7); CREATININE 0.8 mg/dL (0.50-1.20); MAGNESIUM 2.4 mg/dL (1.6-2.4); POTASSIUM 3.6 meq/L (3.8-5.2); TOTAL PROTEIN 5.9 g/dL (6.1-8.0)
[2016-03-22] MEDS: FLUTICASONE/SALMETEROL 250/50 UD INHALER INH SCH ×2 (06:58→19:10)
[2016-03-22] MEDS: IPRATROPIUM/ALBUTEROL SULFATE 3 ML NEB NEB SCH ×4 (06:59→19:09)
[2016-03-22] MEDS: ENOXAPARIN SODIUM 40 MG/0.4 ML SYRINGE SUBCUT SCH (09:21)
[2016-03-22] MEDS: AZITHROMYCIN 250 MG TABLET PO SCH (09:22)
[2016-03-22] MEDS: OMEPRAZOLE 20 MG CAPSULE PO SCH (09:22)
[2016-03-22] MEDS: predniSONE Tab 10 MG TAB PO SCH (09:23)
[2016-03-22] MEDS: ASPIRIN 325 MG TABLET PO SCH (09:23)
[2016-03-22] MEDS: Metoprolol TARTRATE Tab 25 MG TAB PO SCH ×2 (09:24→20:26)
--- NOTE | 2016-03-22 11:15 | PDOC(PROG) ---
Interval History: Feels much better from her breathing standpoint and COPD exacerbation also feels improved from her diuresis no chest pain Objective : Data - Labs CBC and BMP: 03/22/16 05:35 03/22/16 05:35 Labs - Last 24 Hours: Laboratory Results 03/21/16 03/22/16 Range/Units 04:50 05:35 WBC 10.22 (4.8-10.8) 10^3/uL RBC 3.68 L (4.20-5.40) 10^6/uL Hgb 10.6 L (12.0-16.0) g/dL Hct 34.9 L (37.0-47.0) % MCV 94.8 (81-99) FL MCH 28.8 (27-31) PG MCHC 30.4 L (33-37) g/dL RDW Std Deviation 48.4 (39-50) fL RDW Coeff of Kimmy 14.6 H (11.5-14.5) % Plt Count 222 (140-350) 10*3/uL MPV 11.1 (7.4-12.2) FL Immature Gran % (Auto) 0.3 (0-5) % Neut % (Auto) 85.1 H (50-80) % Lymph % (Auto) 6.4 L (10-50) % [place] % (Auto) 8.0 (5-15) % Eos % (Auto) 0.2 (0-8) % Baso % (Auto) 0 (0-1) % Immature Gran # (Auto) 0.03 10*3/UL Neut # (Auto) 8.70 10*3/UL Lymph # (Auto) 0.65 10*3/uL [place] # (Auto) 0.82 H (0.3-0.8) 10*3/UL Eos # (Auto) 0.02 10*3/UL Baso # (Auto) 0 10*3/UL WBC Morphology Comment Normal morphology (NORM) Plt Morphology Comment Normal morphology (NORM) RBC Morph Comment Normal morphology (NORM) Sodium 143 (135-145) meq/L Potassium 3.6 L (3.8-5.2) meq/L Chloride 102 (98-112) meq/L Carbon Dioxide 33 (23-33) meq/L Anion Gap 8 (5-20) BUN 20 (7-22) mg/dL Creatinine 0.8 (0.50-1.20) mg/dL Estimated GFR (>60 ml/min/1.73m(2)) BUN/Creatinine Ratio 25.00 H (6-20) Glucose 100 (78-110) mg/dL Calculated Osmolality 298.0 H (267-292) mOsm/kg Calcium 8.3 L (8.7-10.7) mg/dL Magnesium 2.4 (1.6-2.4) mg/dL Total Bilirubin 0.3 (0.3-1.2) mg/dL AST 27 (8-39) IU/L ALT 34 (9-52) IU/L Alkaline Phosphatase 45 (38-126) IU/L NT-Pro-B Natriuret Pep 4740 H (0-450) PG/ML Total Protein 5.9 L (6.1-8.0) g/dL Albumin 3.2 L (3.5-4.8) g/dL Globulin 2.7 (2.50-4.10) g/dL Albumin/Globulin Ratio 1.10 L (1.3-2.0) mg/g Objective : Exam - Head Head Exam: Normal Inspection - Respiratory Respiratory Exam: Clear to Auscultation - Bilaterally, Breathing Non Labored - Cardiovascular Cardiovascular Exam: RRR, No Murmur - GI/Abdominal GI/Abdominal Exam: Normal Bowel Sounds, Non Tender, Soft - Extremities Extremities Exam: No Edema Present - Neurological Neurological Exam: Alert, Oriented x 3, CN II-XII Intact, No Facial Droop Assessment and Plan - Patient Problems (1) COPD exacerbation Current Visit: Yes Status: Acute (2) Hypertension Current Visit: Yes Status: Acute Qualifiers: Hypertension type: essential hypertension Qualified Description: Essential hypertension Qualifier Code(s): (I10) Essential (primary) hypertension - Assessment / Plan Additional Assessment/Plan Details: #1 COPD exacerbation no pneumonia improved patient is finishing up her Zithromax 500 for 3 days she will be finished tomorrow she is on prednisone 30 mg daily for a total of 5 days has 3 more days left #2 patient had an ND 2 years ago stress test was never done BnP 4000 range and if it is from diuresis we will check a Lexiscan stress test on this patient make sure that her shortness of breath is not part due from ischemia or congestive heart failure #3 uncontrolled hypertension seems to be doing better with the addition of Norvasc 10 mg her blood pressure stayed controlled overnight
[2016-03-22] MEDS: POLYETHYLENE GLYCOL 3350 17 GM POWDER PO SCH (12:24)
[2016-03-22] MEDS: DOCUSATE 100 MG CAPSULE PO SCH ×2 (12:25→20:37)
[2016-03-22] MEDS: FUROSEMIDE 20 MG TABLET PO SCH (13:09)
[2016-03-23 05:16] VITALS: RESP 18
[2016-03-23 05:56] LABS: BASOPHILS # (AUTO) 0 10*3/UL; BASOPHILS % (AUTO) 0 % (0-1); EOSINOPHILS % (AUTO) 2.5 % (0-8); HEMATOCRIT 37.7 % (37.0-47.0); HEMOGLOBIN 11.6 g/dL (12.0-16.0); IMM GRAN % (AUTO) 0.3 % (0-5); IMM GRAN# (AUTO) 0.02 10*3/UL; LYMPHOCYTES % (AUTO) 13.2 % (10-50); MEAN CORPUSCULAR HEMOGLOBIN 29.1 PG (27-31); MEAN CORPUSCULAR HGB CONC 30.8 g/dL (33-37); MEAN PLATELET VOLUME 11.3 FL (7.4-12.2); MONOCYTES # (AUTO) 0.77 10*3/UL (0.3-0.8); MONOCYTES % (AUTO) 10.1 % (5-15); NEUTROPHILS # (AUTO) 5.61 10*3/UL; NEUTROPHILS % (AUTO) 73.9 % (50-80); RDW COEFFICIENT OF VARIATION 14.4 % (11.5-14.5); RED BLOOD COUNT 3.99 10^6/uL (4.20-5.40); WHITE BLOOD COUNT 7.59 10^3/uL (4.8-10.8)
[2016-03-23 06:00] LABS: PLATELET MORPHOLOGY COMMENT NORMAL MORPHOLOGY (NORM)
[2016-03-23 06:14] LABS: BILIRUBIN,TOTAL 0.4 mg/dL (0.3-1.2); BUN/CREATININE RATIO 22.85 (6-20); CALCIUM 8.4 mg/dL (8.7-10.7); CREATININE 0.7 mg/dL (0.50-1.20)
[2016-03-23] MEDS: FUROSEMIDE 20 MG TABLET PO SCH ×2 (06:43→13:08)
[2016-03-23] MEDS: OMEPRAZOLE 20 MG CAPSULE PO SCH (06:43)
[2016-03-23] MEDS: IPRATROPIUM/ALBUTEROL SULFATE 3 ML NEB NEB SCH ×3 (06:57→14:44)
[2016-03-23] MEDS: FLUTICASONE/SALMETEROL 250/50 UD INHALER INH SCH (06:58)
[2016-03-23] MEDS: DOCUSATE 100 MG CAPSULE PO SCH (09:45)
[2016-03-23] MEDS: ASPIRIN 325 MG TABLET PO SCH (09:45)
[2016-03-23] MEDS: AZITHROMYCIN 250 MG TABLET PO SCH (09:45)
[2016-03-23] MEDS: Metoprolol TARTRATE Tab 25 MG TAB PO SCH (09:46)
[2016-03-23] MEDS: ENOXAPARIN SODIUM 40 MG/0.4 ML SYRINGE SUBCUT SCH (09:46)
[2016-03-23] MEDS: predniSONE Tab 10 MG TAB PO SCH (09:46)
[2016-03-23] MEDS: POLYETHYLENE GLYCOL 3350 17 GM POWDER PO SCH (09:47)
--- NOTE | 2016-03-23 09:59 | STRESSTEST ---
[facility] [place] Interpretive Statements This is a pleasant 80 YO female that has been admitted with a COPD exacerbation. Has been getting better, but had elevated BNP, history of prior MN, and no prior stress test known. Lizz scan stress test ordered. Completed with mild SOB that resolved quickly. Resting EKG shows NSR, with RSR prime pattern in V3, question possible right interventricular conduction delay. Had one PVC during test. Plan: review resting and stress images. [email or web address]
--- NOTE | 2016-03-23 15:43 | DI ---
2 DAY LEXISCAN STRESS & REST MYOCARDIAL PERFUSION SCANS, 03/22/2016-03/23/2016: Clinical History: Shortness of breath. COPD. History of previous myocardial infarction. Previous Exam: None at this facility. Monitoring Physician: Dr. Eduardo Pollard. Dose: Stress dose: 32 mCi on 03/23/2016. Rest dose: 35 mCi on 03/22/2016. Quantitative Analysis: Yasmo program with low dose limited CT chest scan attenuation correctio n. Exam Quality: Excellent. Rejected Beats: Stress = 2%; Rest = 2%. HR: Stress = 63-68 b/m; Rest = 66-7 3 b/m. Left ventricular chamber sizes are normal at stress and rest. Transient ischemic dilatation ratio is 1.00 (normal Eric TID <= 1.22; normal Lexiscan TID <= 1.33). Stress LVEF: 83%; rest LVEF: 88%. The n on-attenuated and the attenuated corrected scans show a normal stress and rest myocardial perfusion, wall motion, and thickening pattern. Limited CT scans of the heart show calcifications in the left ma instem, the proximal and middle thirds of the LAD, and the left circumflex artery. There are no lung nodules or enlarged nodes. Readin. Normal left ventricular chamber size at stress and rest. Transient ischemic dilatation ratio is n ormal at 1.00. 2. Normal stress and rest LVEF values of 83%, and 88%. 3. Normal stress and rest myocardial perfusion, wall motion, and thickening. 4. Coronary artery disease manifested by calcifications in the left mainstem, the LAD, and the left circumflex artery. No pulmonary nodules or adenopathy are identified.
[2016-03-23 16:03] VITALS: TEMP 98.7
--- NOTE | 2016-03-23 16:58 | DCSUMMARY ---
Hospitalization Summary Admit Date: 03/18/16 Discharge Date: 03/23/16 Primary Diagnosis:: COPD exacerbation Hospital Course: This very pleasant 80-year-old female that was admitted on 03/18/2016, which shortness of breath, that was progressively worse than normal at home. Per my review of the patient's records, it appeared that her oxygen equipment might be malfunctioning, but the patient does state that it's all in order and working properly at this time. She had some noted fevers and some dysuria, and we did rule out urinary tract infection with a normal urinalysis. She was placed on steroids and antibiotics and improved gradually through the hospital stay. A brain natruretic peptide was done, and it looked like it might be significant for congestive heart failure. A stress test was ordered under the thought of a possible ischemic cardiomyopathy also contributing to shortness of breath, but the ejection fractions appeared normal at rest and with exercise, with no wall motion abnormalities. She did have noted calcifications and 3 vessels consistent with coronary artery disease. The patient does not have any chest pain currently. She did have some blood pressure elevations, but I think they could be related to steroids. Norvasc and Lasix were administered in the hospital and the patient had improvements in her blood pressure. Today, no complaints of chest pain, shortness breath, nausea or vomiting. Patient is ready to go home. Assessment and Plan: 1. As per discharge assessments noted 2. Disposition: Patient is discharged home. 3. Condition on discharge, stable and improved. 4. Diet: regular diet 5. Activities: resume normal activities 6. Follow-Up: 1. See Dr. Barlow in one week 2. 7. Medications at the Time of Discharge: Home Medications Medication Instructions Recorded Confirmed Type Calc/D3/Mag/Zn/Driver Education Instructor/Clarence/[place] 2 each PO DAILY #180 tab 01/25/13 03/18/16 Clinic [Calcium 600 Mg + Vit D Tab] Oxygen (O2) 1 unit NASAL DAILY #1 unit 01/25/13 03/18/16 Clinic Denosumab [Prolia] 60 mg SUBCUT MONTHLY #1 ml 03/19/14 03/18/16 Clinic Albuterol/Ipratrop Neb Soln 1 vial NEB Q4-6HRSPRN #1 box 02/28/15 03/18/16 Clinic [Duoneb Neb Soln] Aspirin 1 tab PO QD #30 tab 09/30/15 03/18/16 [facility] Metoprolol Tartrate 1 tab ORAL BID #180 tab 09/30/15 03/18/16 [facility] Omeprazole 1 cap PO QD #30 cap 12/24/15 03/18/16 [facility] Tiotropium [place] [Spiriva] 18 mcg IH QD #30 capsule 12/24/15 03/18/16 [facility] Fluticasone/Salmeterol [Advair 1 puff INH BID #60 puff 01/05/16 03/18/16 Clinic 250-50 Diskus] predniSONE Tab [Deltasone Tab] 10 mg PO DAILY #8 tab 03/23/16 Rx 8. Time, care, counseling and coordination of care for this discharge is greater than 30 minutes. Exam - Vitals Vital Signs: Vital Signs Vital Signs - Last Taken Temperature 98.7 F 03/23/16 16:02 Pulse Rate 66 03/23/16 16:02 Respiratory Rate 18 03/23/16 16:02 Blood Pressure 105/56 03/23/16 16:02 Pulse Ox 95 03/23/16 16:02 on 2 LPM oxygen - General General Appearance: POSITIVE: No Acute Distress, Cooperative - Head Head Exam: POSITIVE: Atraumatic - Respiratory Respiratory Exam: POSITIVE: Clear to Auscultation - Bilaterally, Breathing Non Labored Additional Respiratory Exam Details: no wheezing today - Cardiovascular Cardiovascular Exam: POSITIVE: RRR, No Murmur, No Clicks, No Gallops, No Rubs, No JVD - GI/Abdominal GI/Abdominal Exam: POSITIVE: Normal Bowel Sounds, Non Tender, Non Distended, Soft - Extremities Extremities Exam: POSITIVE: No Clubbing Present, No Edema Present, No Cyanosis Present - Neurological Neurological Exam: POSITIVE: Alert, Oriented x 3, No Facial Droop, Speech Intact / Clear, Moves All Extremities Equally - Psychiatric Psychiatric Exam: POSITIVE: Normal Affect, Normal Mood Data Perinent Studies: Laboratory Results 03/18/16 03/18/16 03/19/16 Range/Units 19:35 19:43 01:21 WBC 11.81 H (4.8-10.8) 10^3/uL RBC 4.46 (4.20-5.40) 10^6/uL Hgb 13.0 (12.0-16.0) g/dL Hct 40.8 (37.0-47.0) % MCV 91.5 (81-99) FL MCH 29.1 (27-31) PG MCHC 31.9 L (33-37) g/dL RDW Std Deviation 44.9 (39-50) fL RDW Coeff of Kimmy 13.6 (11.5-14.5) % Plt Count 261 (140-350) 10*3/uL MPV 10.6 (7.4-12.2) FL Immature Gran % (Auto) 0.2 (0-5) % Neut % (Auto) 87.7 H (50-80) % Lymph % (Auto) 4.4 L (10-50) % [place] % (Auto) 6.3 (5-15) % Eos % (Auto) 1.2 (0-8) % Baso % (Auto) 0.2 (0-1) % Immature Gran # (Auto) 0.02 10*3/UL Neut # (Auto) 10.37 10*3/UL Lymph # (Auto) 0.52 10*3/uL [place] # (Auto) 0.74 (0.3-0.8) 10*3/UL Eos # (Auto) 0.14 10*3/UL Baso # (Auto) 0.02 10*3/UL WBC Morphology Comment Normal morphology (NORM) Plt Morphology Comment Normal morphology (NORM) RBC Morph Comment Normal morphology (NORM) D-Dimer 12.01 H (0.00-0.59) mg/L VBG pH 7.39 (7.32-7.42) VBG pCO2 43 L (45-55) mmHg VBG HCO3 26 (22-26) mmol/L VBG Base Excess 1 (-2-2) MMOL/L Sodium 141 (135-145) meq/L Potassium 4.1 (3.8-5.2) meq/L Chloride 103 (98-112) meq/L Carbon Dioxide 27 (23-33) meq/L Anion Gap 11 (5-20) BUN 15 (7-22) mg/dL Creatinine 0.7 (0.50-1.20) mg/dL Estimated GFR (>60 ml/min/1.73m(2)) BUN/Creatinine Ratio 21.42 H (6-20) Glucose 134 H (78-110) mg/dL Calculated Osmolality 294.0 H (267-292) mOsm/kg Calcium 8.9 (8.7-10.7) mg/dL Magnesium (1.6-2.4) mg/dL Total Bilirubin 0.6 (0.3-1.2) mg/dL AST 22 (8-39) IU/L ALT 24 (9-52) IU/L Alkaline Phosphatase 65 (38-126) IU/L NT-Pro-B Natriuret Pep (0-450) PG/ML Total Protein 7.4 (6.1-8.0) g/dL Albumin 4.2 (3.5-4.8) g/dL Globulin 3.2 (2.50-4.10) g/dL Albumin/Globulin Ratio 1.30 (1.3-2.0) mg/g Ur Collection Type Cath specimen Urine Color Yellow Urine Clarity Clear (CLEAR) Urine pH 7.5 (5.0-8.5) Ur Specific [place] 1.020 (1.005-1.030) Urine Protein 100 (NEG) mg/dl Urine Glucose (UA) Negative (NEG) mg/dL Urine Ketones Trace (NEG) Urine Occult Blood Negative (NEG) Urine Nitrate Negative (NEG) Urine Bilirubin Negative (NEG) Urine Urobilinogen 0.2 (0.2) EU/dL Ur Leukocyte Esterase Negative (NEG) Urine RBC 0-3 (NONE) /hpf Urine WBC 0-1 (NONE) Ur Squamous Epith Cells None (NONE) Ur Renal Epithelial Cell None (NONE) Urine Crystals None Urine Bacteria None (NONE) Urine Casts None (NONE) Urine Mucus Rare (NONE) Urine Trichomonas None (NONE) Urine Yeast None (NONE) Ur Culture Indicated? Culture not set 03/19/16 03/19/16 03/20/16 Range/Units 04:49 04:50 11:59 WBC 9.79 (4.8-10.8) 10^3/uL RBC 3.93 L (4.20-5.40) 10^6/uL Hgb 11.4 L (12.0-16.0) g/dL Hct 36.5 L (37.0-47.0) % MCV 92.9 (81-99) FL MCH 29.0 (27-31) PG MCHC 31.2 L (33-37) g/dL RDW Std Deviation 45.9 (39-50) fL RDW Coeff of Kimmy 13.7 (11.5-14.5) % Plt Count 236 (140-350) 10*3/uL MPV 10.8 (7.4-12.2) FL Immature Gran % (Auto) 0.1 (0-5) % Neut % (Auto) 92.0 H (50-80) % Lymph % (Auto) 5.9 L (10-50) % [place] % (Auto) 0.9 L (5-15) % Eos % (Auto) 0.9 (0-8) % Baso % (Auto) 0.2 (0-1) % Immature Gran # (Auto) 0.01 10*3/UL Neut # (Auto) 9.00 10*3/UL Lymph # (Auto) 0.58 10*3/uL [place] # (Auto) 0.09 L (0.3-0.8) 10*3/UL Eos # (Auto) 0.09 10*3/UL Baso # (Auto) 0.02 10*3/UL WBC Morphology Comment Normal morphology (NORM) Plt Morphology Comment Normal morphology (NORM) RBC Morph Comment Normal morphology (NORM) D-Dimer (0.00-0.59) mg/L VBG pH 7.35 (7.32-7.42) VBG pCO2 46 (45-55) mmHg VBG HCO3 26 (22-26) mmol/L VBG Base Excess 0 (-2-2) MMOL/L Sodium 142 (135-145) meq/L Potassium 4.4 (3.8-5.2) meq/L Chloride 107 (98-112) meq/L Carbon Dioxide 26 (23-33) meq/L Anion Gap 9 (5-20) BUN 15 (7-22) mg/dL Creatinine 0.7 (0.50-1.20) mg/dL Estimated GFR (>60 ml/min/1.73m(2)) BUN/Creatinine Ratio 21.42 H (6-20) Glucose 163 H (78-110) mg/dL Calculated Osmolality 298.0 H (267-292) mOsm/kg Calcium 8.2 L (8.7-10.7) mg/dL Magnesium 2.2 (1.6-2.4) mg/dL Total Bilirubin (0.3-1.2) mg/dL AST (8-39) IU/L ALT (9-52) IU/L Alkaline Phosphatase (38-126) IU/L NT-Pro-B Natriuret Pep (0-450) PG/ML Total Protein (6.1-8.0) g/dL Albumin (3.5-4.8) g/dL Globulin (2.50-4.10) g/dL Albumin/Globulin Ratio (1.3-2.0) mg/g Ur Collection Type Urine Color Urine Clarity (CLEAR) Urine pH (5.0-8.5) Ur Specific [place] (1.005-1.030) Urine Protein (NEG) mg/dl Urine Glucose (UA) (NEG) mg/dL Urine Ketones (NEG) Urine Occult Blood (NEG) Urine Nitrate (NEG) Urine Bilirubin (NEG) Urine Urobilinogen (0.2) EU/dL Ur Leukocyte Esterase (NEG) Urine RBC (NONE) /hpf Urine WBC (NONE) Ur Squamous Epith Cells (NONE) Ur Renal Epithelial Cell (NONE) Urine Crystals Urine Bacteria (NONE) Urine Casts (NONE) Urine Mucus (NONE) Urine Trichomonas (NONE) Urine Yeast (NONE) Ur Culture Indicated? 03/21/16 03/22/16 03/23/16 Range/Units 04:50 05:35 05:05 WBC 13.77 H 10.22 7.59 (4.8-10.8) 10^3/uL RBC 3.60 L 3.68 L 3.99 L (4.20-5.40) 10^6/uL Hgb 10.5 L 10.6 L 11.6 L (12.0-16.0) g/dL Hct 34.2 L 34.9 L 37.7 (37.0-47.0) % MCV 95.0 94.8 94.5 (81-99) FL MCH 29.2 28.8 29.1 (27-31) PG MCHC 30.7 L 30.4 L 30.8 L (33-37) g/dL RDW Std Deviation 47.9 48.4 48.4 (39-50) fL RDW Coeff of Kimmy 14.5 14.6 H 14.4 (11.5-14.5) % Plt Count 230 222 220 (140-350) 10*3/uL MPV 11.2 11.1 11.3 (7.4-12.2) FL Immature Gran % (Auto) 0.2 0.3 0.3 (0-5) % Neut % (Auto) 94.7 H 85.1 H 73.9 (50-80) % Lymph % (Auto) 2.8 L 6.4 L 13.2 (10-50) % [place] % (Auto) 2.2 L 8.0 10.1 (5-15) % Eos % (Auto) 0 0.2 2.5 (0-8) % Baso % (Auto) 0.1 0 0 (0-1) % Immature Gran # (Auto) 0.03 0.03 0.02 10*3/UL Neut # (Auto) 13.04 8.70 5.61 10*3/UL Lymph # (Auto) 0.39 0.65 1.00 10*3/uL [place] # (Auto) 0.30 0.82 H 0.77 (0.3-0.8) 10*3/UL Eos # (Auto) 0 0.02 0.19 10*3/UL Baso # (Auto) 0.01 0 0 10*3/UL WBC Morphology Comment Normal morphology Normal morphology Normal morphology (NORM) Plt Morphology Comment Normal morphology Normal morphology Normal morphology (NORM) RBC Morph Comment Normal morphology Normal morphology Normal morphology ( NORM) D-Dimer (0.00-0.59) mg/L VBG pH (7.32-7.42) VBG pCO2 (45-55) mmHg VBG HCO3 (22-26) mmol/L VBG Base Excess (-2-2) MMOL/L Sodium 143 143 141 (135-145) meq/L Potassium 4.3 3.6 L 4.0 (3.8-5.2) meq/L Chloride 106 102 98 (98-112) meq/L Carbon Dioxide 28 33 37 H (23-33) meq/L Anion Gap 9 8 6 (5-20) BUN 19 20 16 (7-22) mg/dL Creatinine 0.7 0.8 0.7 (0.50-1.20) mg/dL Estimated GFR (>60 ml/min/1.73m(2)) BUN/Creatinine Ratio 27.14 H 25.00 H 22.85 H (6-20) Glucose 151 H 100 88 (78-110) mg/dL Calculated Osmolality 300.0 H 298.0 H 291.0 (267-292) mOsm/kg Calcium 8.4 L 8.3 L 8.4 L (8.7-10.7) mg/dL Magnesium 2.4 (1.6-2.4) mg/dL Total Bilirubin 0.2 L D 0.3 0.4 (0.3-1.2) mg/dL AST 30 27 25 (8-39) IU/L ALT 33 34 33 (9-52) IU/L Alkaline Phosphatase 46 45 48 (38-126) IU/L NT-Pro-B Natriuret Pep 4740 H (0-450) PG/ML Total Protein 6.1 5.9 L 6.0 L (6.1-8.0) g/dL Albumin 3.4 L 3.2 L 3.3 L (3.5-4.8) g/dL Globulin 2.7 2.7 2.7 (2.50-4.10) g/dL Albumin/Globulin Ratio 1.20 L 1.10 L 1.20 L (1.3-2.0) mg/g Ur Collection Type Urine Color Urine Clarity (CLEAR) Urine pH (5.0-8.5) Ur Specific [place] (1.005-1.030) Urine Protein (NEG) mg/dl Urine Glucose (UA) (NEG) mg/dL Urine Ketones (NEG) Urine Occult Blood (NEG) Urine Nitrate (NEG) Urine Bilirubin (NEG) Urine Urobilinogen (0.2) EU/dL Ur Leukocyte Esterase (NEG) Urine RBC (NONE) /hpf Urine WBC (NONE) Ur Squamous Epith Cells (NONE) Ur Renal Epithelial Cell (NONE) Urine Crystals Urine Bacteria (NONE) Urine Casts (NONE) Urine Mucus (NONE) Urine Trichomonas (NONE) Urine Yeast (NONE) Ur Culture Indicated? Patient Problems - Patient Problem List (1) COPD exacerbation Current Visit: Yes Status: Acute (2) Fever and chills Current Visit: Yes Status: Resolved (3) Coronary artery disease Current Visit: Yes Status: Acute Qualifiers: Coronary Disease-Associated Artery/Lesion type: [place] artery Associated angina: without angina (4) Carotid artery disease Current Visit: Yes Status: Acute Qualifiers: Laterality: left Qualified Description: Left-sided carotid artery disease Qualifier Code(s): (I77.9) Disorder of arteries and arterioles, unspecified (5) Osteoporosis Current Visit: Yes Status: Acute (6) Hypertension Current Visit: Yes Status: Acute Qualifiers: Hypertension type: essential hypertension Qualified Description: Essential hypertension Qualifier Code(s): (I10) Essential (primary) hypertension (7) Urinary urgency Current Visit: Yes Status: Acute
== END 2016-03-23 17:35 | disposition home or self-care (01) | DRG 192 ==
LOC: ER 19:10 → MED/SURG 22:42
PROVIDERS: ADMIT Family Medicine; ATTEND Family Medicine
DX: J44.9 Chronic obstructive pulmonary disease, unspecified (principal); R09.02 Hypoxemia; J44.1 Chronic obstructive pulmonary disease with (acute) exacerbation; R50.9 Fever, unspecified; I25.10 Atherosclerotic heart disease of native coronary artery without angina pectoris; I77.9 Disorder of arteries and arterioles, unspecified; M81.0 Age-related osteoporosis without current pathological fracture; I10 Essential (primary) hypertension; R39.15 Urgency of urination; K21.9 Gastro-esophageal reflux disease without esophagitis
CPT/HCPCS: 36415; 71020; 71275; 78452; 80048; 80053; 81001; 81003; 82803; 83735; 83880; 85025; 85379; 87040; 87804; 93016; 93017; 93018; 94150; 94640; 94761; 99284; A4216; J0696; J1650; J2920; J7030; J7050; J7512; J7620

== ENCOUNTER → 2016-03-18 | Outpatient (CLI) | payer OTHER | LOC: MMPC 11:11 | DX: I25.10 Atherosclerotic heart disease of native coronary artery without angina pectoris (principal); J44.9 Chronic obstructive pulmonary disease, unspecified; I10 Essential (primary) hypertension; M81.0 Age-related osteoporosis without current pathological fracture; E78.5 Hyperlipidemia, unspecified; F32.9 Major depressive disorder, single episode, unspecified; K21.9 Gastro-esophageal reflux disease without esophagitis; I67.9 Cerebrovascular disease, unspecified | CPT/HCPCS: 99213; G0463 ==

== ENCOUNTER → 2016-03-29 | Outpatient (CLI) | payer OTHER | LOC: MMPC 11:11 | DX: J44.9 Chronic obstructive pulmonary disease, unspecified (principal); I10 Essential (primary) hypertension; M81.0 Age-related osteoporosis without current pathological fracture; E78.5 Hyperlipidemia, unspecified; I67.9 Cerebrovascular disease, unspecified; K21.9 Gastro-esophageal reflux disease without esophagitis; F32.9 Major depressive disorder, single episode, unspecified; I25.10 Atherosclerotic heart disease of native coronary artery without angina pectoris; E55.9 Vitamin D deficiency, unspecified | CPT/HCPCS: 99213; G0463 ==

== ENCOUNTER → 2016-05-20 | Outpatient (CLI) | payer OTHER ==
[2016-05-20 10:38] LABS: BUN/CREATININE RATIO 22.85 (6-20); CALCIUM 9.3 mg/dL (8.7-10.7); PHOSPHORUS 3.5 mg/dl (2.4-4.3)
[2016-05-20 10:45] LABS: CALCIUM 9.3 mg/dL (8.7-10.7)
== END ==
LOC: LAB 10:04
DX: M81.0 Age-related osteoporosis without current pathological fracture (principal); I10 Essential (primary) hypertension
CPT/HCPCS: 36415; 80048; 82310; 82565; 84100

== ENCOUNTER → 2016-07-05 | Outpatient (CLI) | payer OTHER | LOC: MMPC 11:11 | DX: J44.9 Chronic obstructive pulmonary disease, unspecified (principal); I10 Essential (primary) hypertension; E78.5 Hyperlipidemia, unspecified; M81.0 Age-related osteoporosis without current pathological fracture; I67.9 Cerebrovascular disease, unspecified; K21.9 Gastro-esophageal reflux disease without esophagitis; F32.9 Major depressive disorder, single episode, unspecified; I25.10 Atherosclerotic heart disease of native coronary artery without angina pectoris | CPT/HCPCS: 99213; G0463 ==

== ENCOUNTER → 2016-09-17 | Outpatient (CLI) | payer OTHER ==
--- NOTE | 2016-09-17 11:19 | DI ---
US CAROTIDS B/L,09/17/2016 10:04 AM: Clinical History: Occlusion and stenosis of bilateral carotid arteries. Previous Exam: July 25, 2007 Findings: Multiple grayscale and color Doppler sonographic images are obtained through the carotid systems bila terally, and demonstrate peripheral vascular disease within the right carotid bulb. Peak systolic velocity on the right measures 159 cm/s at the carotid bulb. There is no elevated peak systolic velocity within the internal carotid artery. The vertebral arteries antegrade. The ICA/CCA ratio measures 1.2. There is mild endothelial thickening of the left common carotid artery. The peak systolic velocity in the carotid artery measures 78 cm/s. Peak systolic velocity in the left internal carotid artery measured 69 cm/s. Flow within the vertebral artery is antegrade. The ICA to CCA ratio on the left measures 1.1. Impression: Peripheral vascular disease of the right carotid bulb with mild increased peak systolic velocity with in the distal common carotid artery at the carotid bulb corresponding with an estimated degree of shirley nosis of between 50 and 79%. Correlate clinically.
== END ==
LOC: US 09:58
PROVIDERS: ATTEND Surgery
DX: I65.23 Occlusion and stenosis of bilateral carotid arteries (principal)
CPT/HCPCS: 93880